=== PATIENT | female | born 1995 | race American Indian/Alaskan Native ===

== ENCOUNTER 2017-02-01 15:54 | Emergency (ER) | payer SELFPAY ==
--- NOTE | 2017-02-01 16:16 | Emergency Department Report ---
Chief Complaint: Skin/Abscess/Foreign Body Stated Complaint: LUMP ON RIGHT SIDE Time Seen by Provider: 02/01/17 16:14 - HPI History of Present Illness: patient is a 21 y/o female who presents due to skin lesion in the right flank area x several months. patient denies any fever, chills or drainage. - ROS Review of Systems: right flank lesion - Exam Vital Signs: Vital Signs 02/01/17 16:02 Temperature 98.8 F Pulse Rate 81 Respiratory 16 Rate Blood Pressure 131/49 O2 Sat by Pulse 100 Oximetry Physical Exam: there was a 3 cm area hardened subcutaneous tissue oi nthe right flank area. no edema, no erythema, no fluctuation, no induration. MSE screening note: Focused history and physical exam performed. Due to findings the following was ordered: ED Disposition for MSE Condition: Stable
[2017-02-01 20:18] LABS: Mean Corpuscular HGB Conc 29 % (30-34); Platelet Count 435 K/mm3 (140-440); Red Blood Count 5.53 M/mm3 (3.65-5.03); White Blood Count 9.1 K/mm3 (4.5-11.0)
[2017-02-01 20:26] LABS: Hemoglobin 8.2 gm/dl (10.1-14.3); Mean Corpuscular Hemoglobin 15 pg (28-32); Mean Corpuscular Volume 51 fl (79-97); Red Cell Distribution Width 23.2 % (13.2-15.2)
[2017-02-01 20:39] LABS: Anion Gap 16 mmol/L; BUN/Creatinine Ratio 12; Blood Urea Nitrogen 7 mg/dL (7-17); Calcium 9.3 mg/dL (8.4-10.2); Carbon Dioxide 26 mmol/L (22-30); Chloride 99.6 mmol/L (98-107); Glucose 119 mg/dL (65-100); Potassium 3.8 mmol/L (3.6-5.0); Sodium 138 mmol/L (137-145)
--- NOTE | 2017-02-01 22:56 | Cat Scan Report ---
FINAL REPORT PROCEDURE: CT ABDOMEN PELVIS W CON TECHNIQUE: Computerized axial tomography of the abdomen and pelvis was performed after the IV injection of iodinated nonionic contrast. HISTORY: mass to right flank COMPARISON: No prior studies are available for comparison. FINDINGS: Liver, spleen, pancreas and adrenal glands are within normal limits. Bilateral kidneys demonstrate normal enhancement without hydronephrosis. Aorta is of normal caliber. There is no free fluid or free air. Gallbladder is unremarkable. Small bowel loops are within normal limits. Appendix is normal. Right ovary is slightly prominent and measures 5.3 x 2.8 centimeters. IMPRESSION: Right ovary is slightly prominent. Ultrasound evaluation may be recommended. Otherwise no acute intra-abdominal or pelvic pathology.
[2017-02-02 00:08] VITALS: BP 118/60
[2017-02-02] MEDS ORDERED: NORCO 7.5/325 PO ONE (01:58)
--- NOTE | 2017-02-02 03:36 | Emergency Department Report ---
Abscess Boil HPI - HPI Chief Complaint: Skin/Abscess/Foreign Body Stated Complaint: LUMP ON RIGHT SIDE Home Medications: Previous Rx's Medication Instructions Recorded Last Taken Type Cephalexin [Keflex] 500 mg PO Q12HR #14 cap 02/02/17 Unknown Rx Meloxicam 7.5 mg PO QAM #7 tablet 02/02/17 Unknown Rx Allergies/Adverse Reactions: Allergies Allergy/AdvReac Type Severity Reaction Status Date / Time No Known Allergies Allergy Verified 02/01/17 16:04 ED Review of Systems ROS: Stated complaint: LUMP ON RIGHT SIDE Other details as noted in HPI ED Past Medical Hx - Past Medical History Previous Medical History?: No - Surgical History Past Surgical History?: Yes Additional Surgical History: breast reduction - Social History Smoking Status: Never Smoker Substance Use Type: Alcohol - Medications Home Medications: Home Medications Medication Instructions Recorded Confirmed Last Taken Type Cephalexin [Keflex] 500 mg PO Q12HR #14 cap 02/02/17 Unknown Rx Meloxicam 7.5 mg PO QAM #7 tablet 02/02/17 Unknown Rx ED Abscess Boil Physical Exam - Exam General: Vital signs noted. No distress. Alert and acting appropriately. ED Course Vital Signs 02/01/17 02/02/17 16:02 00:07 Temperature 98.8 F 97.7 F Pulse Rate 81 64 Respiratory 16 14 Rate Blood Pressure 131/49 Blood Pressure 118/60 [Right] O2 Sat by Pulse 100 100 Oximetry Critical care attestation.: If time is entered above; I have spent that time in minutes in the direct care of this critically ill patient, excluding procedure time. ED Medical Decision Making - Lab Data Result diagrams: 02/01/17 19:53 02/01/17 19:53 ED Disposition Disposition: DC-01 TO HOME OR SELFCARE Condition: Stable Instructions: Abscess (ED) Prescriptions: Cephalexin [Keflex] 500 mg PO Q12HR #14 cap Meloxicam 7.5 mg PO QAM #7 tablet Referrals: PRIMARY CARE, [Primary Care Provider] - 3-5 Days Forms: Work/School Release Form(ED)
== END 2017-02-02 02:17 | disposition home or self-care (01) ==
LOC: ED 15:54
DX: L98.8 Other specified disorders of the skin and subcutaneous tissue (principal)
CPT/HCPCS: 36415; 74177; 80048; 84703; 85027; 99284; Q9967